=== PATIENT | male | born 1985 | race Caucasian/White ===

== ENCOUNTER 2017-05-31 11:49 | Emergency (ER) | payer BC, OTHER ==
[2017-05-31 12:01] VITALS: BP 127/58; PULSE 78; TEMP 98; BMI 35.3
[2017-05-31] MEDS ORDERED: ACETAMINOPHEN 325 MG TABLET (FP) PO ONE (13:17)
--- NOTE | 2017-05-31 13:19 | PDOC ---
History of Present Illness - General Chief Complaint: Injury Stated Complaint: INJURY Time Seen by Provider: 05/31/17 13:06 History Source: Patient Exam Limitations: No Limitations - History of Present Illness Initial Comments: 05/31/17 13:18 31 yr male states he injured his right ankle wednesday has continued pain. Pt was walking on pavement and he stepped on uneven surface and twisted ankle/foot. Past History - Past Medical History Allergies/Adverse Reactions: Allergies Allergy/AdvReac Type Severity Reaction Status Date / Time aspirin Allergy Mild Hives Verified 05/31/17 12:01 Home Medications: Ambulatory Orders NK [No Known Home Medication] 05/31/17 Asthma: Yes - Psycho/Social/Smoking Cessation Hx Suicidal Ideation: No Smoking Status: No Smoking History: Never smoked Number of Cigarettes Smoked Daily: 0 Information on smoking cessation initiated: No *Physical Exam - Vital Signs Last Vital Signs Temp Pulse Resp BP Pulse Ox 98 F 78 18 127/58 100 05/31/17 11:58 05/31/17 11:58 05/31/17 11:58 05/31/17 11:58 05/31/17 11:58 - Physical Exam General Appearance: Yes: Nourished, Appropriately Dressed HEENT: positive: EOMI, PHILIP Neck: negative: Tender Respiratory/Chest: positive: Lungs Clear, Normal Breath Sounds Cardiovascular: positive: Regular Rhythm, Regular Rate Musculoskeletal: positive: Normal Inspection Extremity: positive: Normal Capillary Refill, Normal Inspection, Normal Range of Motion, Tender (medial right ankle bruising , nv intact FROM , tender to the lateral right foot ) Integumentary: positive: Normal Color, Dry, Warm Neurologic: positive: Fully Oriented, Alert, Normal Mood/Affect, Normal Response , Motor Strength 5/5 ED Treatment Course - RADIOLOGY Radiology Studies Ordered: Category Date Time Status ANKLE & FOOT-RIGHT* [RAD] Stat Radiology 05/31/17 13:15 Ordered Medical Decision Making - Medical Decision Making 05/31/17 13:19 cc: right foot/ankle injury 3 days ago will xray to r/o fracture pt is ambulatory with a walking boot on his foot/ankle from a previous injury 05/31/17 15:18 xray is negative for fracture pt has an orthopedist in [place] that he will follow up with pt asking for a note for work *DC/Admit/Observation/Transfer Diagnosis at time of Disposition: Medial ankle sprain Qualifiers: Encounter type: initial encounter Laterality: right Qualified Code(s): S93.421A - Sprain of deltoid ligament of right ankle, initial encounter - Discharge Dispostion Disposition: HOME Condition at time of disposition: Good - Referrals Referrals: Kyle Fallon MD [Staff Physician] - Tha Brown MD [Primary Care Provider] - - Patient Instructions Additional Instructions: follow with your orthopedist for follow up use the hard sole boot that you have - Post Discharge Activity Work/School Note: Back to Work
[2017-05-31] MEDS ORDERED: ACETAMINOPHEN 325 MG TABLET (FP) ONE (13:21)
== END 2017-05-31 13:53 | disposition home or self-care (01) ==
LOC: JERFT 11:49
DX: S93.421A Sprain of deltoid ligament of right ankle, initial encounter (principal); X50.0XXA Overexertion from strenuous movement or load, initial encounter; Y93.01 Activity, walking, marching and hiking; Y92.488 Other paved roadways as the place of occurrence of the external cause; Z88.6 Allergy status to analgesic agent
CPT/HCPCS: 73610-TC-RT; 73630-TC-RT; 99281-25

== ENCOUNTER 2017-11-19 20:10 | Emergency (ER) | payer OTHER ==
[2017-11-19 20:53] VITALS: BP 133/70; PULSE 76; TEMP 98.4; BMI 35.6
--- NOTE | 2017-11-19 21:57 | PDOC ---
History of Present Illness - General Chief Complaint: Cold Symptoms Stated Complaint: COLD SYMPTOMS Time Seen by Provider: 11/19/17 21:56 History Source: Patient Exam Limitations: No Limitations - History of Present Illness Initial Comments: 11/19/17 22:03 Pt. is a 31 y/o M with PMH of asthma who presents to the ED with 5 days of cough , congestion, and runny nose. Pt. states he has tried over the counter medications with little relief. He has also been using an albuterol inhaler which helped slightly. He states that he ran out of his inhaler. He also admits to a post-nasal drip and sore throat. Past History - Travel Traveled outside of the country in the last 30 days: No Close contact w/someone who was outside of country & ill: No - Past Medical History Allergies/Adverse Reactions: Allergies Allergy/AdvReac Type Severity Reaction Status Date / Time aspirin Allergy Mild Hives Verified 11/19/17 20:50 Home Medications: Ambulatory Orders NK [No Known Home Medication] 05/31/17 Albuterol Sulfate Inhaler - [Ventolin HFA Inhaler -] 1 - 2 inh PO Q4H #1 inhaler 11/19/17 Guaifenesin AC [Robitussin AC] 10 ml PO HS #100 ml MDD 1 11/19/17 Asthma: Yes - Suicide/Smoking/Psychosocial Hx Smoking Status: No Smoking History: Never smoked Number of Cigarettes Smoked Daily: 0 Review of Systems - Review of Systems Able to Perform ROS?: Yes Comments:: 11/19/17 10:31 CONSTITUTIONAL: Absent: fever, chills, diaphoresis, generalized weakness, malaise, loss of appetite HEENT: Absent: rhinorrhea, nasal congestion, throat pain, throat swelling, difficulty swallowing, mouth swelling, ear pain, eye pain, visual Changes CARDIOVASCULAR: Absent: chest pain, loss of consciousness, palpitations, irregular heart rate, peripheral edema RESPIRATORY: Present: cough Absent: shortness of breath, dyspnea with exertion, orthopnea, wheezing, stridor, hemoptysis GASTROINTESTINAL: Absent: abdominal pain, abdominal distension, nausea, vomiting, diarrhea, constipation, melena, hematochezia GENITOURINARY: Absent: dysuria, frequency, urgency, hesitancy, hematuria, flank pain, genital pain MUSCULOSKELETAL: Absent: myalgia, arthralgia, joint swelling SKIN: Absent: rash, itching, pallor HEMATOLOGIC/IMMUNOLOGIC: Absent: easy bleeding, easy bruising, lymphadenopathy, frequent infections ENDOCRINE: Absent: unexplained weight gain, unexplained weight loss, heat intolerance, cold intolerance NEUROLOGIC: Absent: headache, focal weakness or paresthesias, dizziness, unsteady gait, seizure, mental status changes, bladder or bowel incontinence PSYCHIATRIC: Absent: anxiety, depression, suicidal or homicidal ideation, hallucinations. Is the patient limited Estonian proficient: No *Physical Exam - Vital Signs Last Vital Signs Temp Pulse Resp BP Pulse Ox 98.4 F 76 20 133/70 97 11/19/17 20:50 11/19/17 20:50 11/19/17 20:50 11/19/17 20:50 11/19/17 20:50 - Physical Exam Comments: 11/19/17 10:32 GENERAL: Well developed, well nourished. Awake and alert. No acute distress. HEENT: Normocephalic, atraumatic. PERRLA, EOMI. No conjunctival pallor. Sclera are non- icteric. Moist mucous membranes. Oropharynx is clear. NECK: Supple. Full ROM. No JVD. Carotid pulses 2+ and symmetric, without bruits. No thyromegaly. No lymphadenopathy. CARDIOVASCULAR: Regular rate and rhythm. No murmurs, rubs, or gallops. Distal pulses are 2+ and symmetric. PULMONARY: No evidence of respiratory distress. Lungs clear to auscultation bilaterally. No wheezing, rales or rhonchi. ABDOMINAL: Soft. Non-tender. Non-distended. No rebound or guarding. No organomegaly. Normoactive bowel sounds. MUSCULOSKELETAL Normal range of motion at all joints. No bony deformities or tenderness. No CVA tenderness. EXTREMITIES: No cyanosis. No clubbing. No edema. No calf tenderness. SKIN: Warm and dry. Normal capillary refill. No rashes. No jaundice. NEUROLOGICAL: Alert, awake, appropriate. Cranial nerves 2-12 intact. No deficits to light touch and temperature in face, upper extremities and lower extremities. No motor deficits in the in face, upper extremities and lower extremities. Normoreflexic in the upper and lower extremities. Normal speech. Toes are down- going bilaterally. Gait is normal without ataxia. PSYCHIATRIC: Cooperative. Good eye contact. Appropriate mood and affect. Medical Decision Making - Medical Decision Making 11/19/17 10:32 Patient is a 31-year-old male with past medical history of asthma, who presents to the emergency department tonight complaining of cough for approximately 5 days. VSS, afebrile. Unlikely flu given lack of fever and other constitutional symptoms. Will refill the patient's albuterol inhaler at this time. We'll also prescribe Robitussin with codeine to help with nighttime symptoms. Will discharge home. Patient understands all discharge instructions and all questions were answered. *DC/Admit/Observation/Transfer Diagnosis at time of Disposition: Upper respiratory infection Qualifiers: URI type: unspecified viral URI Qualified Code(s): J06.9 - Acute upper respiratory infection, unspecified - Discharge Dispostion Disposition: HOME Condition at time of disposition: Good Admit: No - Prescriptions Prescriptions: Albuterol Sulfate Inhaler - [Ventolin HFA Inhaler -] 1 - 2 inh PO Q4H #1 inhaler Guaifenesin AC [Robitussin AC] 10 ml PO HS #100 ml MDD 1 - Referrals Referrals: Tomás Huang MD [Staff Physician] - - Patient Instructions Printed Discharge Instructions: DI for Viral Upper Respiratory Infection -- Adult Additional Instructions: You have an upper respiratory infection. Symptoms may last from 7-14 days. Please drink plenty of fluids and get plenty of rest. You may take ibuprofen 800mg three times a day as need for pain. You were also prescribed Robitussin with Codeine. Please take this medication before bed. Do not drive or operate heavy machinary as this mediation may make you sleepy. Your inhaler was refilled today. Please follow up with your primary care doctor this week. Return to the ED if you have worsening cough, difficulty breathing, shortness of breath, or any changes in your symptoms. - Post Discharge Activity
== END 2017-11-19 22:20 | disposition home or self-care (01) ==
LOC: JERFT 20:10
DX: J06.9 Acute upper respiratory infection, unspecified (principal)
CPT/HCPCS: 99281-25